=== PATIENT | female | born 1985 | race Caucasian/White ===

== ENCOUNTER 2018-02-24 16:13 | Emergency (ER) | payer OTHER, MEDICAID, SELFPAY ==
[2018-02-24 16:20] VITALS: BP 127/83; PULSE 108; RESP 14; TEMP 36.4; O2SAT 100
--- NOTE | 2018-02-24 18:18 | CM.SWNOTE ---
ED VETERINARY PRACTICE MANAGER NOTE Presenting problem: Pt was quite anxious, reported having an out of body experience and seemed to be dissociative. LICENSED MENTAL HEALTH COUNSELOR did sone grounding exercises to help her to stay present. VETERINARY PRACTICE MANAGER also iroduced and reinforced breathing technques to help to calm some of the anxiety. Pt is dealing with numeorus stressors, but primary ones appear to be the loss of her job yesterday, daughter living with her full tiem and worry that she is not a good enough mother and taking care of her boy friend's mother. Pt has significant therapeutic support from a field case manager, and individual and family therapists,b ut does not feel the support and stated that she had no one to help. From her description of her relaitonship with her partner, it seemed as though she may be the one caring for hte children and the house and not getting the needed help, but this seems to be a long standing issue in her life. Mental Status: Pt is a female who looks aproximately her stated age. Her affect was apprpriate and congruent with her depressed and anxious mood. Language and speech were WNL and goal directed. Eye contact wavered from good to down cast with closed eyes. She denied any hallucinations, but spoke of out of body expereinces and feeling a sense of detachment from her body. RESOURCES: [facility] [place] spoke with and provided pt with info re the crisis center in [facility],but she was not interested at this time. She was offered 24 hour #, but said she would not use it. She plans to call her individual counselor. SHe has recently missed [id number] and was strongly encouraged to go back to the routine of weekly appointments. Since she denied SI and any thoughts of plan to hurt or kill herself, [facility] [place] provided active listening, gathered some historical information, provided resources, and reviewed and showed grounding and breathing techniques. No further [facility] [place] needs identified. ED Crisis Response Assessment Start: 02/24/18 17:58 Freq: Status: Active Protocol: Document 02/24/18 17:58 (Rec: 02/24/18 18:10 [id number]) ED Crisis Response Assessment VETERINARY PRACTICE MANAGER Assessment Type Mental Health Reason for VETERINARY PRACTICE MANAGER Referral Pt is a 32 yo female residing at [facility] with her 10 yo step-julian (went back to her mother's today) 10 yo biological julian ( with her fa currently) 8 yo son ( with his bio dad) and 7 mo old son. She has been increasingly depressed and evidently told her mother that she wished she no longer existed. her mother then phone the police and pt said she was so scared that she ran from the police. She came to the emergency dept voluntarily. She denied any SI or any plan. Referred by ED RN, Luz Elena. Presenting Problem Pt stated that she is exhausted. She reported that she does not have any help and that she wants to be a good mother, but will never be as good as her brother's fiance. According to pt, her 10 yo biological daughter was only supposed to stay with her brother for a summer and it ended up being for three years . They began the transition at the end of the school year. Evidently this has been a difficult transition for her daughter. Pt said her julian listens well to ehr brother and his fiance,but fights her. She also stated that she has difficulty keeping appointments, did not register her julian for school until a few days ago and quesitons her ability to mother. Pt is on prozac (40 mg) trazadone (unknown quantity) and valium .5 mg. Mental health diagnosis Pt reported hx of depression, panic attacks and post depression. Current Risk factors Financial difficulties Marital and family difficulties Crisis Plan Pt denied SI. She has an individual therapist, Elen Sher and plans to contact [facility]. She spoke with her today and stated she can call her and request that she comes to see her. Pt has a MOODY Juárezin at [facility] and [facility] for family counseling. Pt still needs to be medically evaluated, but denies any plan to harm or kill herself. E
== END 2018-02-24 18:37 | disposition left against medical advice (07) ==
PROVIDERS: PCP Family Medicine
DX: F41.1 Generalized anxiety disorder (principal)
CPT/HCPCS: 99281